=== PATIENT | female | born 1950 | race African-American/Black ===

== ENCOUNTER → 2023-08-02 | Outpatient (CLI) | payer MEDICARE | END | disposition home or self-care (01) | LOC: RESCLI 14:14 | PROVIDERS: ATTEND Internal Medicine | DX: I10 Essential (primary) hypertension (principal); E78.5 Hyperlipidemia, unspecified; E83.42 Hypomagnesemia; F17.210 Nicotine dependence, cigarettes, uncomplicated; G62.9 Polyneuropathy, unspecified; E83.52 Hypercalcemia; Z98.890 Other specified postprocedural states; Z79.82 Long term (current) use of aspirin; Z94.0 Kidney transplant status; Z79.899 Other long term (current) drug therapy ==